=== PATIENT | female | born 2000 | race Two or more races ===

== ENCOUNTER → 2018-03-16 14:52 | Outpatient (CLI) | payer MEDICAID, SELFPAY ==
[2018-03-16 18:49] LABS: Chlamydia Trachomatis by PCR Negative (Negative); Neisserai gonorrhoeae by PCR Negative (Negative); Probe Check PASS; Sample Adequacy Control PASS; Specimen Processing Control PASS
--- OUTSIDE RECORDS SUMMARY | 2018-05-11 14:19 | XMS RPT_ITS ---
:2000 Author Organization [facility] Care Team Providers Name Role Phone PHYSICIAN, NONE Primary Care Unavailable BHARTI NEVAREZ Attending Unavailable PROVIDER, UNKNOWN Referring Unavailable No, PCP Primary Care Unavailable HAILEY GRIFFITH Attending Unavailable PROVIDER, UNKNOWN Attending Unavailable PROVIDER, UNKNOWN Referring Unavailable No, PCP Primary Care Unavailable PROVIDER, UNKNOWN Referring Unavailable No, PCP Primary Care Unavailable Omar Banerjee Attending Unavailable BanerjeeOmar arrieta Attending Unavailable PROVIDER, UNKNOWN Referring Unavailable No, PCP Primary Care Unavailable Chasidy Crook Attending Unavailable PROBLEMS PROBLEMS DATE TYPE CONDITION / CODE ATTENDING STATUS SOURCE 03/27/2018 Admitting Oth Banerjee, [facility] Diagnosis related conditions, System unspecified Repository trimester / O26.899(ICD-10) 03/27/2018 Admitting Pelvic and perineal Banerjee, [facility] Diagnosis pain / System R10.2(ICD-10) Repository 03/26/2018 Admitting Nicotine Banerjee, [facility] Diagnosis dependence, System unspecified, Repository uncomplicated / F17.200(ICD-10) 03/26/2018 Admitting Anxiety disorder, Banerjee, [facility] Diagnosis unspecified / System F41.9(ICD-10) Repository 03/26/2018 Admitting Post-traumatic Banerjee, [facility] Diagnosis stress disorder, System unspecified / Repository F43.10(ICD-10) 03/26/2018 Admitting Oth BanerjeeOmar Active [facility] Diagnosis related conditions, System first trimester / Repository O26.891(ICD-10) 03/26/2018 Admitting Unspecified Omar Banerjee Active [facility] Diagnosis abdominal pain / System R10.9(ICD-10) Repository 03/16/2018 Unknown Z11.3 - Encounter Chasidy Crook Active [facility] for screening for Community infections with a Hospital predominantly Repository sexual mode of transmission / Z11.3(ICD-10) 02/03/2018 Admitting Unspecified sprain Unknown Active [facility] Diagnosis of left thumb, System initial encounter / Repository S63.602A(ICD-10) 02/03/2018 Admitting Unspecified mood Unknown Active [facility] Diagnosis [affective] System disorder / Repository F39(ICD-10) 02/03/2018 Admitting Fall (on) (from) Unknown Active [facility] Diagnosis unspecified stairs System and steps, init Repository encntr / W10.9XXA(ICD-10) 02/03/2018 Admitting Pain in left wrist Unknown Active [facility] Diagnosis / M25.532(ICD-10) System Repository PROCEDURES PROCEDURES No Procedure Records FoundRESULTS RESULTS US Observed: 03/27/2018 Status: F Source: [employer] TRANSVAGINAL 1:14 PM SYSTEM REPOSITORY Patient Name: JOSIE BUTTERFIELD Ultrasound Exam Date/Time 03/27/2018 11:05:47 EST Exam US Transvaginal Ordering Physician MD DEANA, OMAR Accession Number [id number] CPT4 Codes 93863 () Reason For Exam Other specified related conditions, unspecified trimester Report TRANSVAGINAL /PELVIS SONOGRAM History: Current , pelvic pain Findings: Transvaginal pelvic sonogram shows gravid uterus measuring 8.8 x 7.4 x 4.7 cm. There is single intrauterine gestational sac containing pole and yolk sac. The cardiac activity is detected and the heart rate measures 153 beats per minutes. The age is measured by the crown rump length at 8 weeks and 1 day. There is small free fluid in the cul-de-sac. The cervical length measures 3.9 cm and the cervical canal is not dilated at this time. The combined endometrial thickness and gestational sac measures approximately 2.3 cm. To the extent visualized, the right ovary measures 2.9 x 1.8 x 1.3 cm and the left measures 3.5 x 2.1 x 2.1 cm.. There are tiny bilateral ovarian follicles. Color Doppler and spectral flow to both ovaries is detected. IMPRESSION: Single live intrauterine fetus. Small free fluid in the cul-de-sac. Continued clinical evaluation and follow-up sonogram recommended. Report Dictated on Final Dictated: 03/27/2018 1:14 pm Dictating Physician: MD CARREON AHMAD Signed Date and Time: 03/27/2018 1:26 pm Signed by: MD CARREON AHMAD Transcribed Date and Time: 03/27/2018 1:14 ADD ON TEST FROM Collected: 03/27/2018 Status: F Source: [employer] HIS 12:34 AM SYSTEM REPOSITORY TYPE CODE TESTS RESULT OUT OF REFERENCE UNITS RANGE LAB ADDON NA Add Accepted on test from HIS Result Comment: Specimen available & acceptable for analysis. Performed By: #### ADDON #### [facility] [address] [place] [address] HEMOGRAM W/ AUTODIFF Collected: 03/26/2018 Status: F Source: [employer] 11:59 PM SYSTEM REPOSITORY TYPE CODE TESTS RESULT OUT OF REFERENCE UNITS RANGE LAB IWBC 3.6-10.7 10*3/uL WBC Normal 10.7 LAB RBC 3.80-5.20 10*6/uL RBC Normal 4.21 LAB HGB 11.7-16.0 g/dL Hemoglobin Normal 11.8 LAB HCT 35.0-47.0 % Hematocrit Normal 35.3 LAB MCV 79.0-98.0 fL MCV Normal 84.0 LAB MCH 26.0-34.0 pg MCH Normal 28.0 LAB MCHC 32.0-36.0 % MCHC Normal 33.3 LAB RDW 11.5-14.5 % RDW High 15.8 LAB PLT 140-440 10*3/uL Platelet Normal 310 LAB MPV 7.4-10.4 fL MPV Normal 7.8 LAB GRAN% 40.0-80.0 % Granulocytes Normal 64.4 LAB LYMP% 20.0-40.0 % Lymphocytes Normal 24.0 LAB MONO% 2.0-10.0 % Monocytes Normal 9.0 LAB EOS% 1.0-6.0 % Eosinophils Normal 2.0 LAB BAS% 0.0-2.0 % Basophils Normal 0.6 LAB ANC 1.8-7.0 10*3/uL Abs Normal Neutrophile Cnt 6.9 LAB ALC 1.0-4.3 10*3/uL Abs Lymph Cnt Normal 2.6 LAB AMC 0.0-0.8 10*3/uL Abs Monocyte High Cnt 1.0 LAB AEC 0.0-0.5 10*3/uL Abs Eosin Cnt Normal 0.2 LAB ABC 0.0-0.2 10*3/uL Abs Baso Cnt Normal 0.1 Performed By: #### KENYA MORGAN3, QWNT #### [facility] [address] [place] [address] BASIC METABOLIC PANEL Collected: 03/26/2018 Status: F Source: [employer] 11:59 PM SYSTEM REPOSITORY TYPE CODE TESTS RESULT OUT OF RANGE REFERENCE UNITS LAB NA3 135-145 mmol/L Normal Sodium 140 Result Comment: NOTE: New Sodium Reference Range effective 2018 @ 10:00 LAB K3 3.5-5.1 mmol/L Normal Potassium 3.9 LAB CL3 98-107 mmol/L Normal Chloride 104 LAB CO23 22-30 mmol/L Normal Carbon Dioxide 26 LAB ANIN3 NA Anion Gap 9 LAB GLUC3 70-100 mg/dL Normal Glucose 85 LAB BUN3 7-20 mg/dL Normal Urea Nitrogen 8 LAB CRET3 0.52-1.25 mg/dL Normal Creatinine 0.52 LAB GF3BR >60 mL/min eGFR > 60.0 LAB GF3WR >60 mL/min eGFR OTHER > 60.0 Result Comment: Source- MDRD equation with creatinine calibration to IDMS(NKDEP) eGFR not recommended for drug dose adjustment LAB CA3 8.4-10.4 mg/dL Normal Calcium 9.3 Performed By: #### HEMDF, BMP3, QWNT #### [facility] [address] [place] [address] HCG QUANTITATIVE Collected: 03/26/2018 Status: F Source: [employer] 11:59 PM SYSTEM REPOSITORY TYPE CODE TESTS RESULT OUT OF RANGE REFERENCE UNITS LAB 3QWNT < 3 m[IU]/mL hCG Abnormal Quantitative 21261 Performed By: #### HEMDF, BMP3, QWNT #### [facility] [address] [place] [address] URINALYSIS,MACRO Collected: 03/26/2018 Status: F Source: [facility] [place] 11:38 PM SYSTEM REPOSITORY TYPE CODE TESTS RESULT OUT OF REFERENCE UNITS RANGE LAB APPUR Clear NA Appearance Sl. Cloudy LAB COLUR Lt. Yellow NA Color Yellow LAB USG 1.005-1.030 NA Specific Normal [place],Urine 1.025 LAB UPH 5.0-8.0 NA pH,Urine Normal 6.0 LAB ULUK Negative NA Leukocytes 1 + LAB UNIT Negative NA Nitrites NEG LAB UPRO Negative mg/dL Total Protein,Urine NEG LAB UGLU Negative mg/dL Glucose,Urine NEG (Normal) LAB UKET Negative mg/dL Ketone,Urine Negative LAB UURO 0-1 mg/dL Urobilinogen Normal (0.2) LAB UBIL Negative NA Bilirubin,Ur Negative LAB UBLD Negative {RBC}/uL Occult Blood,Ur Negative LAB RSUB Negative % Reducing Sub,Urine Negative Performed By: #### UAMAC, HCGUR, UAMIC #### [facility] [address] [address] #### C/UR #### [facility] [address] [place] [phone] HCG,URINE QUAL Collected: 03/26/2018 Status: F Source: [facility] 11:38 PM SYSTEM REPOSITORY TYPE CODE TESTS RESULT OUT OF REFERENCE UNITS RANGE LAB HCGUR Negative NA Positive HCG,Urine Qual Result Comment: is the most common reason for HCG in urine, although choriocarcinoma, hydatidiform mole, and certain nontropho- blastic malignancies also result in detectable urinary HCG levels. Sensitivity = 20mIU/mL. Performed By: #### UAMAC, HCGUR, UAMIC #### [facility] [address] [place] [address] #### C/UR #### [facility] [address] [place] [phone] URINALYSIS,MICROSCOPIC Collected: Status: F Source: [facility] 03/26/2018 11:38 PM HEALTH SYSTEM REPOSITORY TYPE CODE TESTS RESULT OUT OF REFERENCE UNITS RANGE LAB WBCU 0-5 /[HPF] 3 WBC,Urine - 5 LAB RBCU 0-2 /[HPF] RBC,Urine Negative LAB EPIU 3-5 /[HPF] 6 Epithelial Cells - 10 LAB GIGI Negative NA Bacteria Moderate (6-50) Performed By: #### UAMAC, HCGUR, UAMIC #### [facility] [address] [address] #### C/UR #### [facility] [address] [place] [address] Observed: 03/26/2018 Status: F Source: [employer] CULTURE URINE 11:38 PM SYSTEM REPOSITORY CULTURE URINE --> Status: F Normal urogenital karin present. Performed By: #### UAMAC, HCGUR, UAMIC #### [address] [address] #### C/UR #### [facility] [address]/NG [facility] BY PCR Collected: 03/16/2018 Status: F Source: [place] 1:45 PM [facility] REPOSITORY TYPE CODE TESTS RESULT OUT OF RANGE REFERENCE UNITS LAB L8200.2100 Negative Normal Chlam Negative Trac PCR LAB L8200.2200 Negative Normal NG by Negative PCR Performed By: #### L8200.2000 #### [facility] [address] [place], [address] CR HAND COMPLETE 3+ Observed: 02/03/2018 Status: F Source: [employer] VIEWS LEFT 8:20 PM SYSTEM REPOSITORY Patient Name: JOSIE BUTTERFIELD Diagnostic Radiology Exam Date/Time 02/03/2018 20:07:31 EDT Exam CR Hand Complete 3+ Views Left Ordering Physician MD MEJIA, CARLOTTA Babb Accession Number [id number] CPT4 Codes 63306 () Reason For Exam Left thumb pain status post fall Report Left hand three views HISTORY: Fall, pain No fracture or dislocation. Left wrist three views No fracture or dislocation. IMPRESSION: Normal examinations. Report Dictated on Final Dictated: 02/03/2018 8:20 pm Dictating Physician: MD MCCRAY MALAY Signed Date and Time: 02/03/2018 8:22 pm Signed by: MD MCCRAY MALAY Transcribed Date and Time: 02/03/2018 8:20 CR WRIST COMPLETE 3 Observed: 02/03/2018 Status: F Source: [employer] VIEWS LEFT 8:20 PM SYSTEM REPOSITORY Patient Name: JOSIE BUTTERFIELD Diagnostic Radiology Exam Date/Time 02/03/2018 20:07:31 EDT Exam CR Wrist Complete 3 Views Left Ordering Physician MD MEJIA, CARLOTTA Babb Accession Number [id number] CPT4 Codes 81198 () Reason For Exam Left wrist pain, status post fall Report Left hand three views HISTORY: Fall, pain No fracture or dislocation. Left wrist three views No fracture or dislocation. IMPRESSION: Normal examinations. Report Dictated on Final Dictated: 02/03/2018 8:20 pm Dictating Physician: MD MCCRAY MALAY Signed Date and Time: 02/03/2018 8:22 pm Signed by: MD MCCRAY MALAY Transcribed Date and Time: 02/03/2018 8:20 THYROID STIM. Collected: 08/08/2017 Status: F Source: [employer] HORMONE 5:43 AM SYSTEM REPOSITORY TYPE CODE TESTS RESULT OUT OF REFERENCE UNITS RANGE LAB TSH4 0.358-3.740 uU/mL Thyroid Stim. 1.140 Hormone Performed By: #### TSH4, LIPD2, HA1C2 #### The performing lab is in the report. LIPID PANEL Collected: 08/08/2017 Status: F Source: [employer] 5:43 AM SYSTEM REPOSITORY TYPE CODE TESTS RESULT OUT OF REFERENCE UNITS RANGE LAB 3CHOL < 200 mg/dL Cholesterol 106 LAB 3TRIG <150 mg/dL Triglyceride 70 LAB HDLC 40-60 mg/dL HDL Low Cholesterol 39 LAB LDL4 <100 mg/dL Low Density Lipoprotein 53 LAB CHLHD Chol/HDL 3 Result Comment: Ref Range: < 3 Low Risk for CHD 3-6 Mod Risk for CHD > 6 High Risk for CHD Performed By: #### TSH4, LIPD2, HA1C2 #### The performing lab is in the report. HEMOGLOBIN A1C Collected: 08/08/2017 Status: F Source: [facility] 5:43 AM SYSTEM REPOSITORY TYPE CODE TESTS RESULT OUT OF REFERENCE UNITS RANGE LAB A1C2 4.0-5.7 % Hemoglobin A1C 5.3 Result Comment: --HgbA1C levels may not be accurate in patients who have renal disease, received recent blood transfusions, are anemic, or who have dyshemoglobinemia. LAB EAG2 mg/dL Estimated Avg Glucose 105 Performed By: #### TSH4, LIPD2, HA1C2 #### The performing lab is in the report. ALLERGIES ALLERGIES No Allergies Records FoundENCOUNTERS ENCOUNTERS ADMIT/DISCHARGE ACCOUNT NUMBER ADMITTING ENCOUNTER LOCATION SOURCE CLASS 03/27/2018 [id number] Ambulatory [facility] Repository 03/26/2018 [id number] [facility] EGRoom: System [id number]: Repository [id number] 03/16/2018 [id number] Ambulatory [facility] ding:LABSPEC Repository 02/03/2018 [id number] [address] [place] [address] EGRoom: System [id number]: Repository [id number] 01/29/2018/01/30/20 [id number] Ambulatory ABuilding:[address] Repository 08/07/2017 [id number] [facility] EDRoom: 2A System 444Bed: Repository [id number] PAYERS PAYERS ENCOUNTER GUARANTOR PAYER SUBSCRIBER SOURCE 03/27/2018 Josie MenjivarB: Primary Josie ButterfieldDOB: [facility] Insurance:[employer] [id number] [facility] Number: Effective Repository [place], [place] Date: [id number]: () 03/26/2018 Josie MenjivarB: Primary Josie ButterfieldDOB: [employer] Insurance:[employer] [id number] [facility] Number: Effective Repository [place], [place] Date: [address]Ddd: (HP) 03/16/2018 JOSIE BUTTERFIELD6984 Primary JOSIE MANNDOB: [facility] Insurance:[employer] [id number] [facility] [address]Ycj: . (HP) PLANPolic Number: Repository [id number] Date:[id number] [address] [place] [address]WI: 03/16/2018 Secondary NOT GIVENUNK [place] Insurance:SELF PAY [facility] Number: Effective Repository Date:2018-03-16 02/03/2018 Josie ButterfieldDOB: Primary Josie S MannDOB: [facility] Insurance:Buckeye[employer]i [email or web address] Number: Effective Repository [place], [place] Date: [address]Npj: () 01/29/2018 JOSIE BUTTERFIELDDOB: Primary JOSIE S MANNDOB: [employer] [id number] Insurance:[employer] [id number] [place], [place] [address] Number: [place], [place] [address]Siv: (840) [id number] [address]Acf: () Date:2018-01-29 [id number] ()Tel: 000) Name:[id number] () [address] [place] [id number]: 08/07/2017 Josie S MannDOB: Primary Josie S MannDOB: [facility] Insurance:[employer] [id number] System [employer] [facility] Number: Repository [place], [place] Effective Date: [address]Wqz: ()
== END ==
PROVIDERS: Visit Provider Obstetrics & Gynecology
DX: Z11.3 Encounter for screening for infections with a predominantly sexual mode of transmission (principal)
CPT/HCPCS: 87491; 87591